=== PATIENT | female | born 2000 | race American Indian/Alaskan Native ===

== ENCOUNTER 2021-02-10 23:28 | Emergency (ER) | payer SELFPAY ==
[2021-02-11] MEDS ORDERED: dexAMETHasone 4 MG/ML VIAL IV ONE (00:30)
[2021-02-11] MEDS ORDERED: KETOROLAC 30 MG/1 ML INJ IV ONE (00:31)
[2021-02-11] MEDS ORDERED: SODIUM CHLORIDE 0.9% 1000 ML 1,000 ML IV ONE (01:07)
--- NOTE | 2021-02-11 01:19 | Emergency Department Report ---
ED ENT HPI - General Chief complaint: Sore Throat Stated complaint: SORE THROAT Time Seen by Provider: 02/11/21 00:24 Source: patient Mode of arrival: Ambulatory Limitations: No Limitations - History of Present Illness Initial comments: 21-year-old female presents to ED with sore throat x3 days. Patient is having pain with swallowing. States she is only able to tolerate liquids. States she was able to take an ibuprofen pill. Patient reports history of enlarged tonsils. States she was told in 2014 that she needed to have her tonsils removed, however her father did not want her to miss 2 weeks of school, showed patient did not undergo the procedure. MD complaint: sore throat -: days(s) (3) Location: throat Severity: moderate Quality: sharp Consistency: constant Improves with: none Worsens with: swallowing Associated Symptoms: fever, sore throat. denies: cough - Related Data Previous Rx's Medication Instructions Recorded Last Taken Type predniSONE [Deltasone] 50 mg PO QDAY #5 tab 02/11/21 Unknown Rx Allergies Allergy/AdvReac Type Severity Reaction Status Date / Time No Known Allergies Allergy Unverified 02/11/21 00:12 ED Dental HPI - General Chief complaint: Sore Throat Stated complaint: SORE THROAT Time Seen by Provider: 02/11/21 00:24 Source: patient Mode of arrival: Ambulatory Limitations: No Limitations - Related Data Previous Rx's Medication Instructions Recorded Last Taken Type predniSONE [Deltasone] 50 mg PO QDAY #5 tab 02/11/21 Unknown Rx Allergies Allergy/AdvReac Type Severity Reaction Status Date / Time No Known Allergies Allergy Unverified 02/11/21 00:12 ED Review of Systems ROS: Stated complaint: SORE THROAT Other details as noted in HPI Comment: All other systems reviewed and negative Constitutional: fever ENT: throat pain Respiratory: denies: cough, shortness of breath ED Past Medical Hx - Past Medical History Previous Medical History?: No - Surgical History Past Surgical History?: No - Medications Home Medications: Home Medications Medication Instructions Recorded Confirmed Last Taken Type predniSONE [Deltasone] 50 mg PO QDAY #5 tab 02/11/21 Unknown Rx ED Physical Exam - General Limitations: No Limitations General appearance: alert, in no apparent distress - Head Head exam: Present: atraumatic, normocephalic - Eye Eye exam: Present: normal appearance, EOMI - ENT ENT exam: Present: other (Bilateral tonsillar swelling and erythema present; voice is muffled) - Neck Neck exam: Present: normal inspection - Respiratory Respiratory exam: Present: normal lung sounds bilaterally. Absent: respiratory distress - Cardiovascular Cardiovascular Exam: Present: normal rhythm, tachycardia - GI/Abdominal GI/Abdominal exam: Absent: distended - Extremities Exam Extremities exam: Present: normal inspection - Neurological Exam Neurological exam: Present: alert, oriented X3 - Psychiatric Psychiatric exam: Present: normal affect, normal mood - Skin Skin exam: Present: warm, dry, intact, normal color ED Course Vital Signs 02/11/21 02/11/21 02/11/21 00:13 01:06 02:30 Temperature 99.4 F Pulse Rate 153 H 133 H 98 H Respiratory 18 20 18 Rate Blood Pressure 180/97 Blood Pressure 153/96 148/89 [Left] O2 Sat by Pulse 99 98 99 Oximetry 02/11/21 05:14 Temperature 98.5 F Pulse Rate 88 Respiratory 18 Rate Blood Pressure Blood Pressure 138/72 [Left] O2 Sat by Pulse 100 Oximetry ED Medical Decision Making - Lab Data Result diagrams: 02/11/21 00:41 02/11/21 00:41 - Radiology Data Radiology results: report reviewed, image reviewed - Medical Decision Making 21-year-old female with sore throat x3 days, low-grade temp, tachycardia. On exam patient has bilateral tonsillar swelling and muffled voice. No drooling present. Patient able to maintain her airway. Labs show WBCs of [address] soft tissue neck shows enlarged bilateral tonsils, no abscess formation. Airway is patent. Rapid strep is negative, however IM penicillin still given as culture was also sent. Patient also given Toradol and Decadron. She reports she is feeling much better at this time. Vital signs improved. Patient will be discharged with follow-up information for ENT. Return precautions given - Differential Diagnosis Tonsillitis, peritonsillar abscess, strep throat Critical care attestation.: If time is entered above; I have spent that time in minutes in the direct care of this critically ill patient, excluding procedure time. ED Disposition Clinical Impression: Tonsillitis Disposition: 01 HOME / SELF CARE / HOMELESS Is pt being admited?: No Condition: Stable Instructions: Tonsillitis, [id number] Prescriptions: predniSONE [Deltasone] 50 mg PO QDAY #5 tab Referrals: RIO POWERS MD [Referring] - 3-5 Days EBONY GERARD MD [Referring] - 3-5 Days Time of Disposition: 04:36
[2021-02-11 01:35] LABS: Hematocrit 39.6 % (30.3-42.9); Hemoglobin 13.3 gm/dl (10.1-14.3); Mean Corpuscular HGB Conc 34 % (30-34); Mean Corpuscular Volume 79 fl (79-97); Platelet Count 265 K/mm3 (140-440); Red Blood Count 5.03 M/mm3 (3.65-5.03); Red Cell Distribution Width 15.7 % (13.2-15.2)
[2021-02-11 02:26] LABS: Blood Urea Nitrogen 8 mg/dL (7-17); Calcium 9.5 mg/dL (8.4-10.2); Hemolysis Index 6
[2021-02-11 02:34] LABS: BUN/Creatinine Ratio 11
[2021-02-11 03:21] LABS: Total Cells Counted 100
[2021-02-11 03:22] LABS: RBC Morphology Normal
--- NOTE | 2021-02-11 04:16 | Cat Scan Report ---
CT NECK WITH CONTRAST HISTORY: Sore throat COMPARISON: None. TECHNIQUE: Routine CT of the neck is performed following intravenous contrast. All CT scans at this [facility] are performed using CT dose reduction for ALARA by means of automated exposure control CONTRAST: 100 mL Omnipaque 300 FINDINGS: Skull Base: No significant abnormality. Parotid, Carotid, Retropharyngeal, Prevertebral, Pharyngeal Mucosal, and Salvage Determiner Spaces: No abnorm al mass, enhancing lesion or other significant abnormality. Airway: Patent and without significant abnormality. Lymphatics: Prominence of the bilateral lymph nodes with level 2 lymph node measuring approximately 1 .5 cm in short axis on the right and 1.3 cm in short axis on the left. Vasculature: No significant abnormality. Osseous Structures: No significant abnormality Additional findings: [place] tonsils appear enlarged without focal fluid collection. Of note there a re multiple calcifications noted within the right palatine tonsil. IMPRESSION: Enlarged bilateral palatine tonsils with tonsilloliths noted in the right tonsil. 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 No peritonsillar abscess. Cervical lymphadenopathy, likely reactive. Signer Name: Dimitri Khan DO Signed: 02/11/2021 4:11 AM Workstation Name: [id number]
[2021-02-11] MEDS ORDERED: PENICILLIN G BENZATHINE 1.2 MILLION UNIT/2 ML INJ IM ONE (04:34)
[2021-02-11 05:15] VITALS: BP 138/72
== END 2021-02-11 05:17 | disposition home or self-care (01) ==
LOC: ED 23:28
DX: J03.90 Acute tonsillitis, unspecified (principal)
CPT/HCPCS: 36415; 70491; 80048; 84703; 85007; 85025; 87116; 87430; 96361; 96372; 96374; 96375; 99284; J0561; J1100; J1885; J7030; Q9967